=== PATIENT | male | born 2005 | race Caucasian/White ===

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

== ENCOUNTER 2024-02-21 23:53 | Emergency (ER) | payer SELFPAY ==
[2024-02-21 23:54] VITALS: BP 162/91; PULSE 91; RESP 18; TEMP 36.3; O2SAT 100
--- NOTE | 2024-02-21 23:59 | ED.VIS.GI ---
HPI HPI - GI History of Present Illness Chief Complaint: Abd Pain Informant: patient Narrative Narrative: Otherwise healthy 18-year-old patient has been having diarrhea for the last 2 or 3 days, yesterday started seeing small mount of blood in it as well as today, and he has been having left-sided abdominal pain that started after the diarrhea as well. Occasional nausea and dry heaves but no significant vomiting. No fevers or chills that he knows of. No travel out of the area or the country recently, no recent antibiotics, no history of C. difficile, no drinking water straight from the ground or shook/stream, no known sick contacts with similar, and no suspicious food intake such as undercooked meat or raw fish. [facility] Medical History Asthma Home Medications ?Medication ?Instructions ?Recorded ?Last Taken ?Type NK 02/21/24 Unknown History ciprofloxacin HCl 500 mg tablet 500 mg PO BID #6 TABLETS 02/22/24 Unknown Rx Allergy/AdvReac Type Severity Reaction Status Date / Time No Known Allergies Allergy Verified 02/21/24 23:54 Surgical History S/P laparoscopic appendectomy Social History Smoking Status: Current every day smoker tobacco type: cigarettes ROS ROS ED Constitutional Constitutional ED: Denies chills or fever(s) Eyes Eyes: Denies change in vision or diplopia ENT ENT ED: Denies rhinorrhea or sore throat Cardiovascular Cardiovascular: Denies chest pain or palpitations Respiratory/Chest Respiratory/Chest: Denies cough or dyspnea Gastrointestinal Gastrointestinal: Reports abdominal pain, diarrhea, hematochezia, nausea and vomiting; Denies melena Genitourinary Genitourinary ED: Denies dysuria or hematuria Musculoskeletal Musculoskeletal: Denies back pain or neck pain Integumentary Denies abscess or rash Neurologic Neurologic: Denies headache(s), paresthesias or weakness Psychiatric Psychiatric: Denies suicidal thoughts EXAM Physical Exam Const Vital Signs: 02/21/24 23:54 Temperature 97.3 F L Temperature Source Temporal Pulse Rate 91 Respiratory Rate 18 Blood Pressure 162/91 H Blood Pressure Mean 114 Pulse Ox 100 Oxygen Delivery Method Room Air Positive well nourished and well developed General Appearance ED: well developed and NAD HEENT Reports moist mucous membranes normocephalic and atraumatic Eyes PERRL and EOMs intact bilaterally Neck full ROM and supple Resp normal respiratory effort and clear to auscultation bilaterally Cardio regular rate, regular rhythm and no murmurs GI non-distended GI Narrative: Mild diffuse abdominal tenderness but more prominent left lower and left upper quadrants. No guarding or rebound. Auscultation: normoactive bowel sounds Palpation: soft Back/Spine no CVA tenderness General Back: other FROM Extremity normal to inspection General Extremety ED: Negative for edema, pulses abnormal or tenderness General Extremity: Negative for edema or pulses abnormal Neuro oriented x3, CN's II-XII intact bilaterally and no sensory deficits noted Sensorium / Orientation: awake and alert Motor Exam: strength 5/5 throughout Skin no rashes or lesions noted and no wounds MDM MDM MDM Narrative Medical decision making narrative: Infectious etiologies are considered, such as viral and bacterial causes of enteritis, in addition to diverticulitis, or noninfectious colitis. Has never had any of this before so I think reasonable to obtain a CT scan to evaluate for the latter couple of possibilities in addition to getting some labs to put it into context, in the meantime he was given IV fluids, Zofran, Toradol but low-dose given the bleeding, for the symptoms. These helped. He had no bowel movements or diarrhea here in the ER. Hemodynamically and clinically stable, I reviewed the labs which are unremarkable, his white blood count is at the high end of the normal range. I reviewed the CT images and report which I agree with, it shows some mild sigmoid colitis. The rest of the CT is unremarkable. Unknown if this is inflammatory or infectious, both are in the differential. We discussed the risks of trying antibiotics empirically, namely that it could make the diarrhea worse, and we also discussed that it is reasonable to try a 3-day course in case this is infectious. He prefers to try the antibiotics. Therefore we will do 3 days of twice daily Cipro, and I advised taking probiotic or eating yogurt every day to help prevent making the diarrhea worse, if it does get worse stop the antibiotic and follow-up with his doctor when able. We gave him several opportunities to have a bowel movement but he was unable, he did not want to wait any longer which is understandable given the fact that it is in the middle of the night. Lab Data Attestation: I reviewed the patient's lab results. Labs: Laboratory Results - last 24 hr 02/22/24 00:15 WBC 10.0 RBC 4.99 Hgb 14.4 Hct 42.6 MCV 85.4 MCH 28.9 MCHC 33.8 RDW Std Deviation 37.0 RDW Coeff of Joe 11.9 Plt Count 386 MPV 9.8 Immature Gran % (Auto) 3.800 H Neut % (Auto) 66.0 Lymph % (Auto) 19.9 [place] % (Auto) 8.1 Eos % (Auto) 1.2 Baso % (Auto) 1.0 Absolute Neuts (auto) 6.6 Absolute Lymphs (auto) 2.00 Nucleated RBC % 0 Sodium 138 Potassium 4.1 Chloride 104 Carbon Dioxide 29.0 Anion Gap 5 BUN 16 Creatinine 1.03 Est GFR (MDRD) Af Amer 118 Est GFR (MDRD) Non-Af 98 BUN/Creatinine Ratio 15.5 Glucose 104 Calcium 9.1 Total Bilirubin 0.30 AST 24 ALT 50 Alkaline Phosphatase 82 Total Protein 8.0 Albumin 4.2 Globulin 3.8 Albumin/Globulin Ratio 1.1 Radiography Diagnostic Testing: Clinical Impression(s) from Imaging Studies Abdomen/Pelvis CT 02/22/24 23:58 IMPRESSION: Diffuse mild wall thickening of the descending and sigmoid colon with decreased caliber. This could indicate an infectious or inflammatory colitis. Electronically Signed: Fer Ariza MD at 1:05 EDT , Discharge Plan Triage Chief Complaint: Abd Pain ED Provider: Josias Mireles Dx/Rx/DC Orders Clinical Impression: Colitis, Acute diarrhea Instructions: ED Understanding Colitis, ED Vomit Diarrhea [place] Adult Prescriptions: New ciprofloxacin HCl 500 mg tablet 500 mg PO BID Qty: 6 0RF No Action NK Primary Care Provider: Care Physician,No Primary Referrals: Doctor,Your [Non-Staff] - 3-5 Days if not improving Print Language: [place] Disposition Disposition: Home, Self Care
[2024-02-22] MEDS: Ondansetron 4 MG/2 ML Vial IV (00:12)
[2024-02-22] MEDS: 0.9% Normal Saline (1000mL) 1,000 ML 999 ML IV (00:12)
[2024-02-22] MEDS: Ketorolac 15 MG/ML Vial IV (00:12)
[2024-02-22 00:43] LABS: Absolute Neutrophil Count 6.6 X10^3/uL (2.0-7.7); Eosinophil# 0.12 X10^3/uL; Eosinophils% 1.2 % (0-5); Hematocrit 42.6 % (40-54); Hemoglobin 14.4 g/dL (13.0-16.5); Lymphocyte % 19.9 % (19-41); Mean Corp Hgb Conc 33.8 g/dL (32-36); Mean Corpuscular Hgb 28.9 pg (27.0-32.0); Mean Corpuscular Volume 85.4 fL (80-94); Mean Platelet Vol. 9.8 fl (6.2-12.0); Monocyte# 0.81 X10^3/uL; Monocyte% 8.1 % (0-10); NRBC Flagged by Analyzer 0 % (0-5); Neutrophil # 6.63 X10^3/uL (2.7-7.7); Platelet Count 386 K/mm3 (150-450); RBC Distribution Width CV 11.9 % (11.6-14.6); Red Blood Count 4.99 M/mm3 (4.6-6.2)
[2024-02-22 00:49] LABS: ALB/GLOB Ratio 1.1 RATIO (0.9-2.4); AST(SGOT) 24 U/L (15-37); Alanine Aminotransfer ALT/SGPT 50 U/L (16-61); Albumin, Serum 4.2 g/dL (3.2-5.0); Alkaline Phosphatase 82 U/L (45-117); Anion Gap 5 (5-15); BUN 16 mg/dL (7-18); BUN/Creat Ratio 15.5 RATIO (10-20); Calcium,Total 9.1 mg/dL (8.5-10.1); Chloride 104 mmol/L (98-107); Creatinine, Serum 1.03 mg/dL (0.70-1.30); EST Glomerular Filtration Rate 98 mL/min (>60); Est Glom Filt Rate - Afr Amer 118 mL/min (>60); Globulin 3.8 g/dL (2.2-4.2); Glucose 104 mg/dL (74-106); Potassium 4.1 mmol/L (3.5-5.1); Sodium Level 138 mmol/L (136-145)
[2024-02-22 01:53] VITALS: PULSE 85
[2024-02-22 02:50] VITALS: BP 131/72; PULSE 71; RESP 16; TEMP 36.3; O2SAT 97
[2024-02-22] MEDS: Ciprofloxacin 500 MG Tablet PO (02:52)
--- NOTE | 2024-02-22 23:58 | CT_ITS ---
EXAM: CT ABDOMEN AND PELVIS WITH INTRAVENOUS CONTRAST CLINICAL INDICATION: LLQ pain w/ bloody diarrhea TECHNIQUE: Helically acquired images were obtained of the abdomen and pelvis with intravenous contrast. This CT exam was performed using one or more of the following dose reduction techniques: automated exposure control, adjustment of the mA and/or kV according to patient size, and/or use of iterative reconstruction technique. CONTRAST: IV 100mL Isovue-370 RADIATION DOSE: CTDIvol = 15.79 mGy, DLP = 1059.33 mGy-cm COMPARISON: No relevant prior studies available. FINDINGS: LOWER THORAX: Unremarkable. Lung bases are clear. No cardiomegaly. No significant pericardial effusion. ABDOMEN: LIVER: Unremarkable. Homogeneous. No focal mass. GALLBLADDER AND BILE DUCTS: The gallbladder is partially contracted. No calcified gallstones. No gallbladder distention or wall edema. No intra- or extrahepatic biliary ductal dilation. PANCREAS: Unremarkable. No focal cystic or solid mass. SPLEEN: Unremarkable. Normal size without focal cystic or solid mass. ADRENALS: Unremarkable. No nodules. KIDNEYS AND URETERS: Small simple cyst in the left kidney. No follow-up imaging is recommended per consensus recommendations based on imaging criteria. Normal renal size and position. No hydronephrosis. STOMACH AND BOWEL: Diffuse mild wall thickening of the descending and sigmoid colon with decreased caliber. The small bowel is unremarkable. No stomach or bowel distention. PELVIS: APPENDIX: Appendectomy. BLADDER: Unremarkable. REPRODUCTIVE: Unremarkable as visualized. No mass. ABDOMEN and PELVIS: INTRAPERITONEAL SPACE: Unremarkable. No ascites or other fluid collection. No free air. BONES/JOINTS: Unremarkable. No suspicious lytic or blastic abnormality. SOFT TISSUES: Unremarkable. No discrete abdominal or pelvic wall hernia. VASCULATURE: Unremarkable. Abdominal aorta is non-dilated. LYMPH NODES: Unremarkable. No enlarged lymph nodes. CT/Abdomen/Pelvis W IV Cont ONLY IMPRESSION: Diffuse mild wall thickening of the descending and sigmoid colon with decreased caliber. This could indicate an infectious or inflammatory colitis. Electronically Signed: Fer Ariza MD at 1:05 EDT ,
== END 2024-02-22 02:56 | disposition home or self-care (01) ==
PROVIDERS: Emergency Provider Emergency Medicine; Visit Provider Emergency Medicine
DX: K52.9 Noninfective gastroenteritis and colitis, unspecified (principal); F17.210 Nicotine dependence, cigarettes, uncomplicated; J45.909 Unspecified asthma, uncomplicated
CPT/HCPCS: 74177; 80053; 85025; 96361; 96374; 96375; 96376; 99283; J7030; Q9967; A4216; J2405